=== PATIENT | female | born 1950 | race Caucasian/White ===

== ENCOUNTER → 2019-05-09 08:44 | Outpatient (BNVA) | payer MEDICARE, SELFPAY | PROVIDERS: Family Provider Nurse Practitioner Family; PCP Nurse Practitioner Family; Visit Provider Nurse Practitioner | DX: M47.817 Spondylosis without myelopathy or radiculopathy, lumbosacral region (principal); M51.36 Other intervertebral disc degeneration, lumbar region; M62.830 Muscle spasm of back; M50.00 Cervical disc disorder with myelopathy, unspecified cervical region; M50.30 Other cervical disc degeneration, unspecified cervical region; M54.12 Radiculopathy, cervical region; M25.562 Pain in left knee; M25.511 Pain in right shoulder; M19.011 Primary osteoarthritis, right shoulder; Z79.891 Long term (current) use of opiate analgesic | CPT/HCPCS: 99213; 99214 ==

== ENCOUNTER → 2019-06-04 08:56 | Outpatient (BNVA) | payer MEDICARE, SELFPAY | PROVIDERS: Family Provider Nurse Practitioner Family; PCP Nurse Practitioner Family; Visit Provider Nurse Practitioner | DX: M54.5 Low back pain (principal); M50.30 Other cervical disc degeneration, unspecified cervical region; M43.12 Spondylolisthesis, cervical region; M26.609 Unspecified temporomandibular joint disorder, unspecified side; R29.6 Repeated falls; F17.210 Nicotine dependence, cigarettes, uncomplicated; Z79.891 Long term (current) use of opiate analgesic | CPT/HCPCS: 99214 ==

== ENCOUNTER → 2019-07-07 15:32 | Outpatient (BNVA) | payer MEDICARE, SELFPAY | PROVIDERS: Visit Provider Nurse Practitioner Family | DX: H10.33 Unspecified acute conjunctivitis, bilateral (principal); I10 Essential (primary) hypertension; F17.200 Nicotine dependence, unspecified, uncomplicated; Z23 Encounter for immunization; E55.9 Vitamin D deficiency, unspecified; R91.1 Solitary pulmonary nodule; K21.9 Gastro-esophageal reflux disease without esophagitis; F32.9 Major depressive disorder, single episode, unspecified; J01.90 Acute sinusitis, unspecified | CPT/HCPCS: 80053; 80061; 82306; 84443; 85025 ==

== ENCOUNTER → 2019-07-29 09:25 | Outpatient (BNVA) | payer MEDICARE, SELFPAY | PROVIDERS: PCP Family Medicine; Visit Provider Nurse Practitioner | DX: Z76.89 Persons encountering health services in other specified circumstances (principal) | CPT/HCPCS: 99212 ==

== ENCOUNTER → 2019-11-05 10:11 | Outpatient (BNVA) | payer MEDICARE, SELFPAY | PROVIDERS: PCP Family Medicine; Visit Provider Anesthesiology | DX: G89.29 Other chronic pain (principal); M54.5 Low back pain; M54.9 Dorsalgia, unspecified; M25.562 Pain in left knee; M50.00 Cervical disc disorder with myelopathy, unspecified cervical region; M50.30 Other cervical disc degeneration, unspecified cervical region; M54.12 Radiculopathy, cervical region; M25.511 Pain in right shoulder; F17.210 Nicotine dependence, cigarettes, uncomplicated; Z79.891 Long term (current) use of opiate analgesic; Z71.6 Tobacco abuse counseling | CPT/HCPCS: 99214 ==

== ENCOUNTER → 2019-12-04 14:00 | Outpatient (BNVA) | payer MEDICARE, SELFPAY | PROVIDERS: PCP Nurse Practitioner Family; Visit Provider Nurse Practitioner Family | DX: J06.9 Acute upper respiratory infection, unspecified (principal) | CPT/HCPCS: 87635 ==

== ENCOUNTER → 2019-12-11 16:34 | Outpatient (BNVA) | payer MEDICARE, SELFPAY | PROVIDERS: PCP Nurse Practitioner Family; Visit Provider Nurse Practitioner Family | DX: R30.0 Dysuria (principal) | CPT/HCPCS: 80053; 81003; 87077; 87086; 87186 ==

== ENCOUNTER → 2019-12-31 09:42 | Outpatient (BNVA) | payer MEDICARE, SELFPAY | PROVIDERS: PCP Nurse Practitioner Family; Visit Provider Anesthesiology | DX: G89.29 Other chronic pain (principal); M54.42 Lumbago with sciatica, left side; M54.41 Lumbago with sciatica, right side; M54.9 Dorsalgia, unspecified; M25.562 Pain in left knee; M54.12 Radiculopathy, cervical region; M50.00 Cervical disc disorder with myelopathy, unspecified cervical region; M50.30 Other cervical disc degeneration, unspecified cervical region; M96.1 Postlaminectomy syndrome, not elsewhere classified; H10.33 Unspecified acute conjunctivitis, bilateral; F17.210 Nicotine dependence, cigarettes, uncomplicated; Z98.1 Arthrodesis status; Z79.891 Long term (current) use of opiate analgesic | CPT/HCPCS: 99214 ==

== ENCOUNTER → 2020-02-16 14:47 | Outpatient (BNVA) | payer MEDICARE, SELFPAY | PROVIDERS: PCP Nurse Practitioner Family; Visit Provider Nurse Practitioner Family | DX: I10 Essential (primary) hypertension (principal); E55.9 Vitamin D deficiency, unspecified; F32.9 Major depressive disorder, single episode, unspecified; K21.9 Gastro-esophageal reflux disease without esophagitis; F17.200 Nicotine dependence, unspecified, uncomplicated | CPT/HCPCS: 80053; 80061; 82306; 84443; 85025 ==

== ENCOUNTER → 2020-03-02 08:59 | Outpatient (BNVA) | payer MEDICARE, SELFPAY | PROVIDERS: PCP Nurse Practitioner Family; Visit Provider Anesthesiology | DX: M54.12 Radiculopathy, cervical region (principal); M50.00 Cervical disc disorder with myelopathy, unspecified cervical region; M50.30 Other cervical disc degeneration, unspecified cervical region; M54.9 Dorsalgia, unspecified; M96.1 Postlaminectomy syndrome, not elsewhere classified; F17.210 Nicotine dependence, cigarettes, uncomplicated; Z98.1 Arthrodesis status; Z79.891 Long term (current) use of opiate analgesic; Z71.6 Tobacco abuse counseling | CPT/HCPCS: 99214 ==

== ENCOUNTER → 2020-05-05 09:30 | Outpatient (BNVA) | payer MEDICARE, SELFPAY | PROVIDERS: PCP Nurse Practitioner Family; Visit Provider Anesthesiology | DX: G89.29 Other chronic pain (principal); M54.42 Lumbago with sciatica, left side; M54.9 Dorsalgia, unspecified; M25.562 Pain in left knee; M50.00 Cervical disc disorder with myelopathy, unspecified cervical region; M54.12 Radiculopathy, cervical region; M50.30 Other cervical disc degeneration, unspecified cervical region; F17.210 Nicotine dependence, cigarettes, uncomplicated; Z79.891 Long term (current) use of opiate analgesic; Z98.1 Arthrodesis status | CPT/HCPCS: 99214 ==

== ENCOUNTER → 2020-06-29 09:37 | Outpatient (BNVA) | payer MEDICARE, SELFPAY | PROVIDERS: PCP Nurse Practitioner Family; Visit Provider Anesthesiology | DX: G89.29 Other chronic pain (principal); M54.9 Dorsalgia, unspecified; M54.12 Radiculopathy, cervical region; M50.00 Cervical disc disorder with myelopathy, unspecified cervical region; M25.562 Pain in left knee; M50.30 Other cervical disc degeneration, unspecified cervical region; M96.1 Postlaminectomy syndrome, not elsewhere classified; F17.210 Nicotine dependence, cigarettes, uncomplicated; Z98.1 Arthrodesis status; Z79.891 Long term (current) use of opiate analgesic | CPT/HCPCS: 99214 ==

== ENCOUNTER → 2020-08-31 08:06 | Outpatient (BNVA) | payer MEDICARE, SELFPAY | PROVIDERS: PCP Nurse Practitioner Family; Visit Provider Anesthesiology | DX: G89.29 Other chronic pain (principal); M54.9 Dorsalgia, unspecified; M96.1 Postlaminectomy syndrome, not elsewhere classified; M54.12 Radiculopathy, cervical region; M50.00 Cervical disc disorder with myelopathy, unspecified cervical region; M50.30 Other cervical disc degeneration, unspecified cervical region; F17.210 Nicotine dependence, cigarettes, uncomplicated; Z98.1 Arthrodesis status; Z79.891 Long term (current) use of opiate analgesic | CPT/HCPCS: 99214 ==

== ENCOUNTER → 2020-10-19 10:45 | Outpatient (BNVA) | payer MEDICARE, SELFPAY | PROVIDERS: PCP Nurse Practitioner Family; Visit Provider Nurse Practitioner Family | DX: E55.9 Vitamin D deficiency, unspecified (principal); I10 Essential (primary) hypertension | CPT/HCPCS: 80053; 80061; 82306; 85025 ==

== ENCOUNTER → 2020-10-27 07:54 | Outpatient (BNVA) | payer MEDICARE, SELFPAY | PROVIDERS: PCP Nurse Practitioner Family; Visit Provider Anesthesiology | DX: G89.29 Other chronic pain (principal); M54.9 Dorsalgia, unspecified; M50.00 Cervical disc disorder with myelopathy, unspecified cervical region; M54.12 Radiculopathy, cervical region; M50.30 Other cervical disc degeneration, unspecified cervical region; M96.1 Postlaminectomy syndrome, not elsewhere classified; F17.210 Nicotine dependence, cigarettes, uncomplicated; Z98.1 Arthrodesis status; Z79.891 Long term (current) use of opiate analgesic | CPT/HCPCS: 99214 ==

== ENCOUNTER 2020-12-04 17:51 | Emergency (ER) | payer MEDICARE, MEDICAID, SELFPAY ==
[2020-12-04 18:02] VITALS: BP 115/65; PULSE 79; RESP 19; TEMP 36.9; O2SAT 94; BMI 18.3
--- NOTE | 2020-12-04 18:51 | ED_ITS ---
HPI - Burn/Smoke Inhalation General: Chief complaint: Burn/Smoke Inhalation Stated complaint: PEBBLES FEET BURTON Time Seen by Provider: 12/04/20 18:51 History of Present Illness: HPI Narrative: 70-year-old female comes in today with burton to the tops of both foot. Patient was working with some baking grease when she dropped the singh causing it to splash to her sock feet. Patient states her immunizations are up-to-date. Patient denies any diabetes. Patient has a history of osteoarthritis, hypertension, hyperlipidemia, peripheral artery disease, and a chronic smoker. 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 Osteoarthritis, localized PAD (peripheral artery disease) Post-laminectomy syndrome Primary osteoarthritis, right shoulder Smoker Spondylolisthesis, cervical region TMJ (temporomandibular joint disorder) Surgical History History of lumbar fusion Hx of left knee surgery 1979 -bucked off horse [place] S/P cholecystectomy S/P decompression of ulnar nerve 2009 [facility] Right ulnar nerve decompression S/P left knee arthroscopy Left knee arthroscopy/menisectomy/debridement, chrondroplasty S/P total hysterectomy AGE 24 Status post aortic coarctation stent placement 2009 Aortoiliac stent placement Status post reverse total replacement of right shoulder Family History Mother , 62 IN SLEEP UNKNOWN CAUSE Cancer OVARIAN CANCER Father , UNKNOWN CAUSE @ 82 No problems noted. Social History (Updated 10/27/20 @ 08:17 by Kendal Steve LPN) Smoking and tobacco status: current every day smoker cigarettes Years cigarettes smoked: 53 [ Other cigarette details: PER PATIENT REPORT 0.5PPD DOWN FROM 1.5ppd ] Second hand smoke exposure: No Alcohol intake: former Lives independently: Yes Household members: spouse Marital status: Current occupational status: disabled Pets and animals: Yes Pets & animals: dog(s) History of recent travel: No Current gender identity: Female Physical Exam Const: COMMON NORMALS: no acute distress and patient oriented x3 GENERAL APPEARANCE: cooperative HENMT: COMMON NORMALS: normocephalic and Normal external nose present HEAD & SCALP: normal to inspection and normocephalic NOSE: Normal external nose present MOUTH: Normal oral and palatal mucosa present Eye: GENERAL EYE: appearance normal, both eyes and all related structures Neck/C-Spine: COMMON NORMALS: full ROM Chest: COMMONS NORMALS: normal inspection of the chest Resp: COMMON NORMALS: normal respiratory effort EFFORT & INSPECTION: Yes able to speak in complete sentences Cardio: COMMON NORMALS: regular rate and regular rhythm RATE: regular rate RHYTHM: regular rhythm GI: COMMON NORMALS: non-tender Extremity: COMMON NORMALS: normal to inspection Neuro: COMMON NORMALS: patient oriented x3 and moves all extremities Psych: COMMON NORMALS: mental status grossly normal and cooperative Skin: NARRATIVE SKIN EXAM: Patient has some first-degree burton to the dorsal right foot that is approximately 5 x 4 cm circular. Patient has some second- degree burton to the left dorsal foot that is again 5 x 4 cm. Course Vital Signs: Vital signs: Vital Signs Temperature 98.5 F 12/04/20 18:02 Pulse Rate 79 12/04/20 18:02 Respiratory Rate 19 H 12/04/20 18:02 Blood Pressure 115/65 12/04/20 18:02 Pulse Oximetry 94 12/04/20 18:02 MDM - Burn/Smoke Inhalation MDM Narrative: Medical decision making narrative: Patient comes in today for injuries to bilateral feet. Patient had done some delgadillo grease over and splashed onto her sock feet. On exam patient has some superficial burton to the right dorsal foot no sign of blistering at this time. On the left dorsal foot we do note some blistering. Patient complains of pain. Vital signs are normal. Patient does have a history of peripheral artery disease, and smoking. Differential diagnosis includes but not limited to need for back prophylaxis tetanus, complications due to burton, partial-thickness burton. We will arrange for patient to follow-up case management to get referred to wound care for further treatment of burton. Patient be treated with bacitracin, oral antibiotic for prophylaxis, and medications for pain. Patient reported understanding of care plan and need for follow-up or return to the ER. Discharge Plan Discharge Patient Disposition: Home Clinical Impression: Burn Condition: Stable Prescriptions: New hydrocodone-acetaminophen 5-325 mg tablet 1 tab PO Q6H PRN (Reason: pain (scale score 7-10)) Qty: 12 RF: 0 bacitracin 500 unit/gram ointment 1 applic topical DAILY Qty: 28 RF: 0 clindamycin HCl 150 mg capsule 150 mg PO Q8H 7 Days Qty: 21 RF: 0 No Action Flu Severe Cold-Night(diph-pe) 25-10-650 mg/30 mL liquid PO .at HS PRNRF: 0 hydrocodone-acetaminophen 10-325 mg tablet 1 tab PO .6 times a day PRN (Reason: Pain) 30 Days Qty: 180 RF: 0 hydrocodone-acetaminophen 10-325 mg tablet 1 tab PO .SIX TIMES DAILY PRN (Reason: pain) 30 Days Qty: 180 RF: 0 amlodipine 5 mg tablet See Rx Instructions .ROUTE .COMPLEX Qty: 90 RF: 1 atorvastatin 40 mg tablet 40 mg PO DAILY Qty: 90 RF: 1 metoprolol succinate 25 mg tablet extended release 24 hr 25 mg PO DAILY Qty: 90 RF: 1 Chantix Starting Month Box 0.5 mg (11)- 1 mg (42) tablets,dose pack See Rx Instructions PO PER PKG DIR Qty: 53 RF: 0 albuterol sulfate 2.5 mg /3 mL (0.083 %) solution for nebulization 2.5 mg INHALATION QID PRNRF: 0 aspirin [Adult Low Dose Aspirin] 81 mg tablet,delayed release (DR/EC) 162 mg PO ONCE RF: 0 diphenhydramine HCl [Benadryl Allergy] 25 mg tablet 25 mg PO ONCE PRNRF: 0 docusate sodium [Colace] 100 mg capsule 100 mg PO . NEEDED RF: 0 ibuprofen 200 mg tablet 200 mg PO Q6H PRNRF: 0 nitroglycerin [Nitrostat] 0.4 mg tablet, sublingual 0.4 mg SUBLINGUAL ONCE PRNRF: 0 Women's Multivitamin 18 mg-400 mcg- 500 mg-50 mcg tablet PO DAILY RF: 0 famotidine 20 mg tablet 20 mg PO BID Qty: 180 RF: 1 cyclobenzaprine 10 mg tablet 10 mg PO TID PRN (Reason: muscle spasm) 90 Days Qty: 270 RF: 0 sulfamethoxazole-trimethoprim [Bactrim DS] 800-160 mg tablet 1 tab PO BID 7 Days Qty: 14 RF: 0 Discharge Orders: Discharge ED (Routine); Ordered 12/04/20 Ordered By: Wellington Centeno Referrals: Becky Carter FNP [Primary Care Provider] - Discharge Diet: Usual diet Discharge Activity: Increase activity as tolerated Patient Instructions: Opioid Safety, Wound Care (General) Activity Restrictions/Additional Instructions: Home and rest. Elevate feet. Use medications as directed. Clean wounds gently daily with mild soap and water. Dry thoroughly apply antibiotic ointment and cover. Most of the pain should start resolving within 2 to 3 days. Follow-up with primary care as needed. Case management will contact you regarding wound care follow-up for further evaluation and treatment. Return to the ER for new concerns. Coding Level of Care Code ED Press Cutter for Maksim Youssef Exam Comprehensive
[2020-12-04] MEDS: bacitracin ointment Pkt 1 EACH TOPICAL (20:14)
[2020-12-04] MEDS: HYDROcodone-acetaminophen 7.5-325 mg Tablet 1 TAB PO (20:14)
[2020-12-04] MEDS: clindamycin 150 mg Capsule PO (20:14)
[2020-12-04 20:37] VITALS: BP 115/65; PULSE 85; RESP 19
--- NOTE | 2020-12-06 14:39 | DCPLANNER ---
senior finance manager had message to schedule a follow up appointment for patient with Wound Care. senior finance manager called Wound Care clinic, spoke with Rody, gave clinic patients information. senior finance manager was told that insurance does not pay for patients to be seen at Wound Care for horn, that patient would need to see her primary care physician before being seen at Wound Care. senior finance manager called patient at phone number [phone], unable to speak with patient at this time, and unable to leave a voicemail due to no voicemail box set up.
== END 2020-12-04 20:10 | disposition home or self-care (01) ==
PROVIDERS: Emergency Provider Nurse Practitioner Family; PCP Nurse Practitioner Family
DX: T25.222A Burn of second degree of left foot, initial encounter (principal); T25.121A Burn of first degree of right foot, initial encounter; I73.9 Peripheral vascular disease, unspecified; I10 Essential (primary) hypertension; E78.5 Hyperlipidemia, unspecified; F17.210 Nicotine dependence, cigarettes, uncomplicated; Z79.82 Long term (current) use of aspirin; X10.2XXA Contact with fats and cooking oils, initial encounter
CPT/HCPCS: 16020; 99283

== ENCOUNTER → 2020-12-20 11:09 | Outpatient (BNVA) | payer MEDICARE, SELFPAY | PROVIDERS: PCP Nurse Practitioner Family; Visit Provider Nurse Practitioner Family | DX: R50.9 Fever, unspecified (principal); J06.9 Acute upper respiratory infection, unspecified; Z20.822 Contact with and (suspected) exposure to COVID-19 | CPT/HCPCS: 87635 ==

== ENCOUNTER → 2020-12-29 14:27 | Outpatient (BNVA) | payer MEDICARE, SELFPAY | PROVIDERS: PCP Nurse Practitioner Family; Visit Provider Nurse Practitioner Family | DX: M25.511 Pain in right shoulder; G89.29 Other chronic pain; M50.00 Cervical disc disorder with myelopathy, unspecified cervical region; M25.562 Pain in left knee | CPT/HCPCS: 73562 ==

== ENCOUNTER → 2021-01-06 10:32 | Outpatient (BNVA) | payer MEDICARE, MEDICAID, SELFPAY | PROVIDERS: PCP Nurse Practitioner Family; Referring Provider Nurse Practitioner Family; Visit Provider Specialist | DX: M25.562 Pain in left knee (principal) | CPT/HCPCS: 73560; 73565 ==

== ENCOUNTER → 2021-04-05 15:20 | Outpatient (BNVA) | payer MEDICARE, MEDICAID, SELFPAY | PROVIDERS: PCP Nurse Practitioner Family; Visit Provider Family Medicine | DX: E78.5 Hyperlipidemia, unspecified (principal); I10 Essential (primary) hypertension; E55.9 Vitamin D deficiency, unspecified; Z00.00 Encounter for general adult medical examination without abnormal findings; Z12.31 Encounter for screening mammogram for malignant neoplasm of breast | CPT/HCPCS: 80053; 80061; 82306; 84443; 85025 ==